=== PATIENT | female | born 1980 | race Caucasian/White ===

== ENCOUNTER 2016-11-15 08:59 | Emergency (ER) | payer OTHER ==
[2016-11-15 09:10] VITALS: BMI 43.0
[2016-11-15 09:13] VITALS: TEMP 97.8
[2016-11-15 09:24] LABS: AUTOMATED BASOPHIL 0.1 % (0-2); AUTOMATED LYMPH 21.3 % (17-44); AUTOMATED MONOCYTE 4.9 % (3-10); AUTOMATED NEUTROPHIL 73.7 % (45-76); MPV 7.7 fL (7.4-10.4)
[2016-11-15 09:37] LABS: PARTIAL THROMB. TIME 25.5 SEC (22-35)
[2016-11-15 09:44] LABS: BLOOD UREA NITROGEN 11 MG/DL (7-17); CALCIUM 9.4 MG/DL (8.4-10.2); CALCULATED OSMOLALITY 275 MOs/Kg (270-290); CHLORIDE 106 mEq/L (98-107); GLUCOSE 223 MG/DL (70-99); SODIUM LEVEL 140 mEq/L (137-146); TOTAL PROTEIN 7.6 G/DL (6.3-8.2)
--- NOTE | 2016-11-15 10:46 | DIRPT ---
CLINICAL DATA: Three weeks of intermittent mid chest discomfort also nonproductive cough and mild shortness of breath EXAM: PORTABLE CHEST 1 VIEW COMPARISON: PA and lateral chest x-ray dated October 31, 2016 FINDINGS: The exam is performed in an apical lordotic projection. The lungs are adequately inflated. There is no focal infiltrate. There is no pleural effusion. The heart in its is top-normal in size. The pulmonary vascularity is not engorged. The mediastinum is normal in width. IMPRESSION: There is no active cardiopulmonary disease. Electronically Signed By: Mac Ch M.D. On: 11/15/2016 10:43
[2016-11-15] MEDS ORDERED: ACETAMINOPHEN 325 MG/TAB TABLET PO ONE (12:18)
--- NOTE | 2016-11-15 12:18 | EDPRACDOC ---
- General Information Chief Complaint: Chest Pain Stated Complaint: CHEST PAIN Time Seen by Provider: 11/15/16 12:09 Information Source: Patient Mode of Arrival: Car Home Medications: Home Medications Albuterol Sulfate [Proventil Hfa] 2 puff INH Q4-6H PRN 10/31/16 Albuterol Sulfate [Proventil, Ventolin] 2.5 mg NEB Q4-6H PRN 10/31/16 Canagliflozin [Invokana] 100 mg PO DAILY 10/31/16 Fluoxetine HCl [Prozac] 60 mg PO DAILY 10/31/16 Fluticasone/Salmeterol [Advair 100/50] 1 puff INH BID 10/31/16 Glyburide 5 mg PO BID #60 tablet 10/31/16 Hydrochlorothiazide 12.5 mg PO DAILY 10/31/16 Montelukast Sodium [Singulair] 10 mg PO DAILY 10/31/16 Multivitamin [Multi-Day Vitamins] 1 each PO DAILY 10/31/16 Nebulizer [Erapid Nebulizer] 1 each MC .UNKNOWN 10/31/16 Rosuvastatin Calcium [Crestor] 20 mg PO DAILY 10/31/16 TOPIRAMATE (Anticonvulsant) [Topamax] 100 mg PO BID 10/31/16 Trazodone HCl [Desyrel] 50 mg PO QHS 10/31/16 Hydrocodone Bit/Acetaminophen [Hydrocodon-Acetaminophen 5-325] 1 tab PO Q6 PRN # 15 tab 11/15/16 Prednisolone 1% Ophth Susp [Pred Forte 1% Ophth Susp] 1 drop OS QID 11/15/16 Prednisone [Deltasone, Orasone] 40 mg PO DAILY 5 Days 11/15/16 Allergies/Adverse Reactions: Allergies Allergy/AdvReac Type Severity Reaction Status Date / Time adhesive Allergy Hives* Verified 11/15/16 09:09 erythromycin base Allergy Hives* Verified 11/15/16 09:09 ibuprofen Allergy See Verified 11/15/16 09:09 Comments Penicillins Allergy Hives* Verified 11/15/16 09:09 Sulfa (Sulfonamide Allergy Hives* Verified 11/15/16 09:09 Antibiotics) CT DYE Allergy Hives* Uncoded 11/15/16 09:09 - History of Present Illness Onset: 3 weeks HPI: PT COMPLAINS OF "TIGHTNESS" IN CHEST OFF/ON X 3 WEEKS, WORSE SINCE YESTERDAY, STATES PAIN WORSE WITH COUGH AND DEEP BREATHING, NO N/V/D, HAS FELT SOBR, STATES "ASTHMA HAS BEEN ACTING UP LATELY". PT DENIES FEVER OR CHILLS, NO RECENT SURGERY, TRAUMA, PROLONGED IMMOBILIZATION, NO HRT. Chest Pain Location: Reports: Right Chest Pain Radiation: Reports: None Symptoms Occur: Reports: Suddenly Cardiac Risk Factors: Reports: Hypertension, Diabetes Cardiac History of: Reports: None PE Risk Factors: Reports: None Medications within 24 Hours: Reports: None Prehospital Care: Reports: None Pain Came On: Reports: Suddenly Pain Status: Present Now Pain Description: Reports: Tightness Pain Severity: Moderate Pain Worsens With: Reports: Coughing, Breathing, Movement Pain Improves With: Reports: Rest Associated Signs and Symptoms: Reports: SOB. Denies: Palpitations, Diaphoretic , Abdominal Pain, Nausea, Vomiting, Calf Pain or Swelling, Chest Rash ED Past Medical History - History Reviewed Yes Nurses notes reviewed and agree except as marked - Patient Medical History Cardiac History: Reports: Hypertension Respiratory History: Reports: Asthma Psychological History: Reports: Depression Systemic History: Reports: Diabetes Surgical History: Reports: Cholecystectomy - Social Medical History Smoking Status: Never smoker ETOH: None Substance Abuse: None EDM Review of Systems - Review of Systems Constitutional: negative: Chills, Fever Eyes: negative: Blurred Vision, Double Vision Ears: negative: Drainage Throat: negative: Pain Nose: negative: Congestion, Discharge Respiratory: Shortness of Breath. negative: Cough, Wheezing Cardiovascular: Chest Pain. negative: Palpitations Gastrointestinal: negative: Diarrhea, Nausea, Pain, Vomiting Genitourinary: negative: Dysuria, Frequency Neurological: negative: Dizziness, Headache, Numbness, Weakness Musculoskeletal: Chestwall Integumentary: No Symptoms Reported - Physical Exam Constitutional: Alert (Awake), No apparent distress Oriented to: Time, Person, Place Last recorded Vital Signs: Last Vital Signs Temp 97.8 F 11/15/16 09:11 Pulse 85 11/15/16 11:55 Resp 20 11/15/16 11:55 BP 122/74 11/15/16 11:55 Pulse Ox 96 11/15/16 11:55 Oxygen Pulse Oxygen Saturation 96 O2 Device Room Air Oxygen Flow Rate Fraction of Inspired Oxygen ( FIO2) - HEENT Head: Normal ( normocephalic) Eye Exam: Normal (PERRL, EOMI, Sclera white) Oropharynx: Normal (Pharynx:Moist without exudate,Gums-no swelling) Tympanic Membrane: Normal ENT EAC: Normal TMJ: Normal Nose: No Symptoms Reported (septum midline) Neck: Normal (FROM, trachea at midline) - Respiratory/Cardiovascular Respiratory: Normal - CTA (BBS clear to auscultation without adventitious sounds ) Cardiovascular: Normal (RRR without murmur, gallop or rub) - GI Auscultation: Normal (NABS) Palpation: Normal (Soft,No rebound or guarding, non distended) Tenderness: Non tender Porras's Sign: Negative - Musculoskeletal Back: Normal (Non-Tender) Extremities: Normal (Normal tone, Pulses 2+ No cyanosis or edema, FROM) - Integumentary Skin: Normal, Warm, Dry Lymphatics: Normal (no adenopathy) - Neurologic Memory Impaired: Normal Motor Function: Normal (Normal tone, Pulses 2+ No cyanosis or edema, FROM) Cranial Nerve: Normal (CN II-X11 intact sensation, strength 5/5) Cerebellar: Normal Mood Description: Normal Perception: Normal ED Chest Pain Exam - Respiratory/Cardiovascular Respiratory: Normal - CTA Cardiovascular/Chest: Normal Radial Pulse: Normal Carotid Arteries: Normal Edema: negative: 1+, 2+, 3+, 4+, 5, 6 Chest Palpation: Tender, Reproduces Pain - Differential Diagnosis Chest wall pain, Cholelithiasis, CHF, Costochondritis, Gastritis, Myocardial infarction, Pericarditis, Pancreatitis, Pneumonia, Pulmonary embolus - Action Patient received Aspirin within last 24 hours?: No ASA given in the ED: No Aspirin therapy held due to: Other-specify below* (NOT INDICATED) Patient received Beta Gabby within last 24hrs: No Beta Gabby held due to: Other-specify below* (NOT INDICATED) - Re-evaluation Re-evaluation 1 Re-evaluation Time: 13:10 (NO DISTRESS, PAIN REPRODUCIBLE, PT IN NO DISTRESS, USING IPAD, RESTING COMFORTABLY) - Results 11/15/16 09:13 11/15/16 09:13 WBC 8.6 xk/uL (3.8-10.8) 11/15/16 09:13 RBC 5.21 xM/uL (4.20-5.40) 11/15/16 09:13 Hgb 14.8 g/dL (12.0-16.0) 11/15/16 09:13 Hct 41.9 % (36-47) 11/15/16 09:13 MCV 80 fL (81-99) L 11/15/16 09:13 MCH 28.5 pg (27-32) 11/15/16 09:13 MCHC 35.4 g/dl (33-36) 11/15/16 09:13 RDW 14.6 % (11.5-14.5) H 11/15/16 09:13 Plt Count 214 xk/uL (130-400) 11/15/16 09:13 MPV 7.7 fL (7.4-10.4) 11/15/16 09:13 Neut % (Auto) 73.7 % (45-76) 11/15/16 09:13 Lymph % (Auto) 21.3 % (17-44) 11/15/16 09:13 Ripley % (Auto) 4.9 % (3-10) 11/15/16 09:13 Eos % (Auto) 0.0 % (0-5) 11/15/16 09:13 Baso % (Auto) 0.1 % (0-2) 11/15/16 09:13 Absolute Neuts (auto) 6.28 xk/uL (1.7-8.2) 11/15/16 09:13 Absolute Lymphs (auto) 1.81 xk/uL (0.65-4.75) 11/15/16 09:13 PT 10.6 SEC (9.2-11.2) 11/15/16 09:13 INR 1.0 11/15/16 09:13 APTT 25.5 SEC (22-35) 11/15/16 09:13 Sodium 140 mEq/L (137-146) 11/15/16 09:13 Potassium 4.0 mEq/L (3.5-5.1) 11/15/16 09:13 Chloride 106 mEq/L (98-107) 11/15/16 09:13 Carbon Dioxide 19 mMOL/L (22-33) L 11/15/16 09:13 Anion Gap 19 mEq/L (8-16) H 11/15/16 09:13 BUN 11 MG/DL (7-17) 11/15/16 09:13 Creatinine 0.50 MG/DL (0.52-1.04) L 11/15/16 09:13 Estimated GFR (MDRD) > 60 mL/min (>=60) 11/15/16 09:13 Glucose 223 MG/DL (70-99) H 11/15/16 09:13 Calculated Osmolality 275 MOs/Kg (270-290) 11/15/16 09:13 Calcium 9.4 MG/DL (8.4-10.2) 11/15/16 09:13 Total Bilirubin 1.0 MG/DL (0.2-1.3) 11/15/16 09:13 AST 18 IU/L (14-36) 11/15/16 09:13 ALT 26 IU/L (9-52) 11/15/16 09:13 Alkaline Phosphatase 104 IU/L (38-126) 11/15/16 09:13 Troponin I < 0.01 ng/mL (<.04) 11/15/16 09:13 [id number] Pept 31 pg/mL (0-450) 11/15/16 09:13 Total Protein 7.6 G/DL (6.3-8.2) 11/15/16 09:13 Albumin 4.4 G/DL (3.5-5.0) 11/15/16 09:13 Lab Results 11/15/16 11/15/16 11/15/16 09:13 09:13 09:13 WBC 8.6 RBC 5.21 Hgb 14.8 Hct 41.9 MCV 80 L MCH 28.5 MCHC 35.4 RDW 14.6 H Plt Count 214 MPV 7.7 Neut % (Auto) 73.7 Lymph % (Auto) 21.3 Ripley % (Auto) 4.9 Eos % (Auto) 0.0 Baso % (Auto) 0.1 Absolute Neuts (auto) 6.28 Absolute Lymphs (auto) 1.81 PT 10.6 INR 1.0 APTT 25.5 Sodium 140 Potassium 4.0 Chloride 106 Carbon Dioxide 19 L Anion Gap 19 H BUN 11 Creatinine 0.50 L Estimated GFR (MDRD) > 60 Glucose 223 H Calculated Osmolality 275 Calcium 9.4 Total Bilirubin 1.0 AST 18 ALT 26 Alkaline Phosphatase 104 Troponin I < 0.01 [id number] Pept 31 Total Protein 7.6 Albumin 4.4 Laboratory Results - last 24 hr 11/15/16 11/15/16 11/15/16 09:13 09:13 09:13 WBC 8.6 RBC 5.21 Hgb 14.8 Hct 41.9 MCV 80 L MCH 28.5 MCHC 35.4 RDW 14.6 H Plt Count 214 MPV 7.7 Neut % (Auto) 73.7 Lymph % (Auto) 21.3 Ripley % (Auto) 4.9 Eos % (Auto) 0.0 Baso % (Auto) 0.1 Absolute Neuts (auto) 6.28 Absolute Lymphs (auto) 1.81 PT 10.6 INR 1.0 APTT 25.5 Sodium 140 Potassium 4.0 Chloride 106 Carbon Dioxide 19 L Anion Gap 19 H BUN 11 Creatinine 0.50 L Estimated GFR (MDRD) > 60 Glucose 223 H Calculated Osmolality 275 Calcium 9.4 Total Bilirubin 1.0 AST 18 ALT 26 Alkaline Phosphatase 104 Troponin I < 0.01 [id number]-[id number] Pept 31 Total Protein 7.6 Albumin 4.4 Laboratory Results 11/15/16 09:13 11/15/16 09:13 Decision Time to Discharge: 13:11 - Departure Disposition: Home Condition: Stable Final Diagnosis: Costochondritis, acute Instructions: Costochondritis (ED) Education/Counseling Given To: Patient Education/Counseling Given Regarding: Diagnosis, Treatment, Prognosis, Follow Up Referrals: Yassine Delgado MD [Primary Care Provider] - One Week Prescriptions: Hydrocodone Bit/Acetaminophen [Hydrocodon-Acetaminophen 5-325] 1 tab PO Q6 PRN # 15 tab PRN Reason: Pain Prednisone [Deltasone, Orasone] 40 mg PO DAILY 5 Days Forms: Excuse Note Additional Instructions: APPLY WARM COMPRESSES TO YOUR CHEST 2O MINS AT A TIME 4 - 5 TIMES DAILY NEEDED FOR PAIN, RETURN TO THE ED FOR ANY WORSENING SYMPTOMS OR CONCERNS.
[2016-11-15 13:20] VITALS: BP 130/78; PULSE 82
[2016-11-15] MEDS ORDERED: ACETAMINOPHEN 650 MG SUPP PR ONE (13:25)
[2016-11-15] MEDS ORDERED: HYDROCODONE 5 MG/ACETAMIN 325 MG TAB PO ONE (13:25)
== END 2016-11-15 13:30 | disposition home or self-care (01) ==
LOC: ED 08:59
DX: M94.0 Chondrocostal junction syndrome [Tietze] (principal); I10 Essential (primary) hypertension; J45.909 Unspecified asthma, uncomplicated; F32.9 Major depressive disorder, single episode, unspecified; E11.9 Type 2 diabetes mellitus without complications; Z79.899 Other long term (current) drug therapy; R06.02 Shortness of breath
CPT/HCPCS: 36415; 71010; 80053; 83880; 84484; 85025; 85379; 85610; 85730; 93005; 99283; J3490